=== PATIENT | male | born 1995 | race Caucasian/White ===

== ENCOUNTER 2020-07-12 15:56 | Emergency (ER) | payer SELFPAY ==
[~2020-07-12] VITALS: Ht 165.1 cm; Wt 54.4 kg
[2020-07-12 15:58] VITALS: Ht 165.1 cm; Wt 54.4 kg
[2020-07-12 16:56] VITALS: BP 126/78
== END 2020-07-12 17:25 | disposition home or self-care (01) ==
LOC: ED 15:56
DX: F41.9 Anxiety disorder, unspecified (principal); R06.02 Shortness of breath; Z20.828 Contact with and (suspected) exposure to other viral communicable diseases; Z91.018 Allergy to other foods
CPT/HCPCS: U0003